=== PATIENT | female | born 1990 | race Caucasian/White ===

== ENCOUNTER 2017-12-19 12:40 | Emergency (ER) | payer SELFPAY ==
[2017-12-19 12:46] VITALS: PULSE 78
--- NOTE | 2017-12-19 12:56 | ED PDOC ---
HPI: General Adult Time Seen by Provider: 12/19/17 12:44 Chief Complaint (Nursing): Medical Clearance Chief Complaint (Provider): clearance History Per: Patient Additional Complaint(s): 27 year old female presents in police custody for medical and psychiatric clearance prior to incarceration. Patient is currently under arrest. Patient states she is slightly anxious upon arrival but denies suicidal or homicidal ideation. She denies any chest pain or shortness of breath. Past Medical History Reviewed: Historical Data, Nursing Documentation, Vital Signs Vital Signs: Last Vital Signs Temp 98.6 F 12/19/17 12:44 Pulse 78 12/19/17 12:44 Resp 18 12/19/17 12:44 BP 125/93 H 12/19/17 12:44 Pulse Ox 99 12/19/17 12:56 - Medical History PMH: Anxiety, Asthma - Family History Family History: States: No Known Family Hx - Living Arrangements Living Arrangements: With Family - Social History Current smoker - smoking cessation education provided: No Alcohol: None Drugs: Denies - Home Medications Home Medications: Ambulatory Orders Medication Instructions Recorded Albuterol HFA [Ventolin HFA 90 2 puff IH [id number] #0 puff 03/30/15 mcg/actuation (8 g)] Prednisone 3 tab-cap PO QAM #15 tab 03/30/15 - Allergies Allergies/Adverse Reactions: Allergies Allergy/AdvReac Type Severity Reaction Status Date / Time theophylline Allergy RASH Verified 12/19/17 12:43 Review of Systems ROS Statement: Except As Marked, All Systems Reviewed And Found Negative Cardiovascular: Negative for: Chest Pain Respiratory: Negative for: Shortness of Breath Psych: Positive for: Anxiety. Negative for: Suicidal ideation Physical Exam - Reviewed Nursing Documentation Reviewed: Yes Vital Signs Reviewed: Yes - Physical Exam Appears: Positive for: Well, Non-toxic, No Acute Distress Skin: Negative for: Rash Eye Exam: Positive for: Normal appearance Cardiovascular/Chest: Positive for: Regular Rate, Rhythm Respiratory: Positive for: Normal Breath Sounds. Negative for: Wheezing, Respiratory Distress Back: Positive for: Normal Inspection Extremity: Positive for: Normal ROM Neurologic/Psych: Positive for: Alert, Oriented - ECG O2 Sat by Pulse Oximetry: 99 Pulse Ox Interpretation: Normal Medical Decision Making Medical Decision Makin27 year old here for medical and psychiatric clearance Plan: Crisis consult As per crisis counselor and educational psychology teacher cotton ball bagger Alonso Potter, patient does not meet criteria for admission and is stable for discharge. Patient is medically and psychiatrically stable for incarceration. Disposition - Clinical Impression Clinical Impression: Medical clearance for incarceration, Anxiety - Patient ED Disposition Is Patient to be Admitted: No - Disposition Referrals: [facility] [Outside] Disposition: Discharged/Transfer to Law Enforcement Disposition Time: 13:13 Condition: STABLE Additional Instructions: Patient is medically and psychiatrically stable for incarceration. Instructions: General (DC), Anxiety, Adult (DC) Forms: [employer] (Wol[employer])
[2017-12-19 13:56] VITALS: BP 128/77; RESP 19; TEMP 97; O2SAT 98
== END 2017-12-19 13:56 | disposition home or self-care (01) ==
LOC: H.ER 12:40
DX: F41.9 Anxiety disorder, unspecified (principal); J45.909 Unspecified asthma, uncomplicated